=== PATIENT | male | born 1985 | race Caucasian/White ===

== ENCOUNTER 2017-04-08 11:20 | Emergency (ER) | payer OTHER ==
[2017-04-08 11:29] VITALS: TEMP 97.9
--- NOTE | 2017-04-08 13:18 | EDPHY ---
H & P Stated Complaint: L facial numbness x 2 months;worse past few days Time Seen by Provider: 04/08/17 12:20 HPI/ROS: CHIEF COMPLAINT: Left facial numbness HISTORY OF PRESENT ILLNESS: This is a 32-year-old generally healthy male who presents with left facial numbness. It has been present for the past 2 months but recently seems to be worsening. He is a professional trombone player and finds that he is now having difficulty playing his instrument because of numbness. When this began it was associated with some left nasal congestion. He was seen by an coffee urn attendant, had a scope performed, and was told that there might be some mild inflammation. He was started on medications for allergy, such as Flonase. Most of the nasal congestion has subsided, but the left facial numbness persists and seems to be getting worse, particularly around his lip. He also notes pressure behind his left eye. He does not have headache. He has not had visual changes. He is not aware of any change in taste. He does note that he is biting his cheek and his tongue with unexpected frequency. He has no change in hearing but occasionally he has a loud ringing sensation in the left ear that fades to nothing and then is hearing is normal. This has happened 3 times in the last several weeks. He denies change in vision. 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 He denies other numbness. He has not had any weakness. No recent fever. REVIEW OF SYSTEMS: A ten point review of systems was performed and is negative with the exception of the items mentioned in the HPI. - Personal History Current Tetanus Diphtheria and Acellular Pertussis (TDAP): Yes - Medical/Surgical History Other PMH: healthy - Social History Smoking Status: Never smoked Alcohol Use: Occasionally Additional Social History: He lives in [place] and comes to [place] in the summer to participate in the [employer]. He is a professional trombonist. He is here with his and young daughter. - Physical Exam Exam: General Appearance: Alert. Vital signs reviewed. BP 143/90. Eyes: Pupils equal and round, no conjunctival injection, no discharge. Anicteric. ENT, Mouth: Mucous membranes are moist, no oropharyngeal erythema or edema. Neck: No lymphadenopathy, supple. Respiratory: Lungs are clear to auscultation; no wheezes, rales, or rhonchi. Cardiovascular: Regular rate and rhythm; no murmur, rub, or gallop. Gastrointestinal: Abdomen is soft and nontender, no masses or organomegaly, bowel sounds normal. Skin: Warm and dry, no rashes on exposed skin, normal color. Back: Nontender to palpation over the thoracolumbar spine. No CVAT. Extremities: No lower extremity edema, no calf tenderness or swelling. Neurological: Alert and oriented. Moving all four extremities easily and equally. Cranial nerves II through XII are examined. There is decreased sensation over the left face in V1, V2, and V3. Remainder of cranial nerves are normal. Strength is 5 over 5 bilaterally with testing of all major motor groups. Sensation is intact to light touch over all 4 extremities. Deep tendon reflexes are 2+ in the biceps and knees bilaterally. Gait is normal. Finger-to -nose is performed accurately. Psychiatric: Normal affect. Constitutional: Initial Vital Signs Temperature (C) 36.6 C 04/08/17 11:25 Heart Rate 75 04/08/17 11:25 Respiratory Rate 18 04/08/17 11:25 Blood Pressure 143/90 H 04/08/17 11:25 O2 Sat (%) 98 04/08/17 11:25 O2 Delivery Mode Room Air Allergies/Adverse Reactions: arthrotec Allergy (Intermediate, Uncoded 04/08/17 11:30) Hives Home Medications: Medication Instructions Recorded methylPREDNISolone [Medrol Dose 1 each PO AD #1 ea 04/08/17 Tio] Medical Decision Making ED Course/Re-evaluation: Re-evaluated patient to assess again for left facial weakness. I do not appreciate any left facial weakness whatsoever. MRI without gadolinium is reported to me by Dr. Clement Garcia as negative/ normal. I relayed these results to the patient. I spoke with the patient and with his father about these findings. His father wondered whether a Medrol Dosepak might be helpful. 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 I have explained that I do not have an explanation for his son's facial numbness. We discussed the advisability of treating with medication in this setting with the diagnosis is unclear. No evidence of stroke or mass. Normal ventricular size. No obvious AVM. Sanchez's Palsy (CN VII) unlikely without weakness (although there can be sensory loss in Sanchez's Palsy). No demyelination noted on MRI. There has been no pain, only sensory loss, making trigeminal neuralgia unlikely. This could be a manifestation of herpes zoster, but there have been no lesions. Other considerations include Lyme disease (no known tick bite), Sjogren's syndrome, sarcoid, scleroderma--all of which can cause cranial neuropathy. These investigations, if needed, can be performed as an outpatient. He is returning to his home state tomorrow and is urged to follow up with PCP and a neurologist. Danger signs reviewed. - Data Points Laboratory Results: Laboratory Results 04/08/17 13:30 04/08/17 13:30 Departure - Departure Disposition: Home, Routine, Self-Care Clinical Impression: Paresthesia Condition: Good Instructions: Paresthesia (ED) Additional Instructions: It is not clear what is causing your left facial numbness. I recommend that you follow up with a neurologist as soon as you return to [place]. Let the neurologist's office know that you have left facial numbness, that you are a professional trombonist, and that it is interfering with playing your instrument. Make sure they know that you were seen in an emergency department and that you had an MRI done. As we discussed, I do not know that prednisone will help you. I am referring you to our neurologist button cutting machine operator, in case you end up staying in the area. Referrals: Jhonathan De Anda DO [Doctor of Osteopathy] - As per Instructions Prescriptions: methylPREDNISolone [Medrol Dose Tio] 1 each PO AD #1 ea
[2017-04-08 13:42] LABS: % IMMATURE GRANULYOCYTES 0.2 % (0.0-1.1); ABSOLUTE IMMATURE GRANULOCYTES 0.01 10^3/uL (0.00-0.10); ADD DIFF? NO; ADD MORPH? NO; ADD SCAN? NO; ATYPICAL LYMPHOCYTE FLAG 10 (0-99); FRAGMENT RBC FLAG 0 (0-99); HEMATOCRIT 45.9 % (40.0-51.0); HEMOGLOBIN 16.4 g/dL (13.7-17.5); LEFT SHIFT FLG 0 (0-99); LIPEMIA HEMOLYSIS FLAG 90 (0-99); MEAN CELL HEMOGLOBIN CONCENTR. 35.7 g/dL (32.4-36.7); MEAN CELL VOLUME 92.4 fL (81.5-99.8); PLATELET CLUMPS FLAG 0 (0-99); PLATELET COUNT 263 10^3/uL (150-400); RED BLOOD CELL COUNT 4.97 10^6/uL (4.40-6.38); RED CELL DISTRIBUTION WIDTH 11.2 % (11.5-15.2)
[2017-04-08 14:14] LABS: ANION GAP 13 mEq/L (8-16); CALCIUM 9.8 mg/dL (8.5-10.4); CARBON DIOXIDE 22 mEq/l (22-31); CHLORIDE 106 mEq/L (97-110); CREATININE 0.7 mg/dL (0.7-1.3); GLOMERULAR FILTRATION RATE > 60; GLUCOSE 90 mg/dL (70-100); POTASSIUM 4.7 mEq/L (3.5-5.2); SODIUM 141 mEq/L (134-144)
[2017-04-08 15:09] VITALS: BP 135/84; PULSE 73; RESP 16; O2SAT 97
== END 2017-04-08 15:10 | disposition home or self-care (01) ==
DX: R20.2 Paresthesia of skin (principal)